=== PATIENT | female | born 1995 ===

== ENCOUNTER 2017-10-19 19:56 | Emergency (ER) | payer SELFPAY ==
[2017-10-19 20:20] VITALS: BP 115/71
[2017-10-19 20:36] LABS: Basophils % (Auto) 0.4 % (0.0-1.8); Eosinophils # (Auto) 0.1 K/mm3 (0.0-0.4); Eosinophils % (Auto) 0.6 % (0.0-4.3); Hematocrit 37.2 % (30.3-42.9); Hemoglobin 11.9 gm/dl (10.1-14.3); Lymphocytes # (Auto) 3.1 K/mm3 (1.2-5.4); Lymphocytes % (Auto) 25.7 % (13.4-35.0); Mean Corpuscular HGB Conc 32 % (30-34); Mean Corpuscular Volume 81 fl (79-97); Platelet Count 285 K/mm3 (140-440); Red Blood Count 4.63 M/mm3 (3.65-5.03); Red Cell Distribution Width 14.1 % (13.2-15.2)
[2017-10-19 20:49] LABS: Mean Corpuscular Hemoglobin 26 pg (28-32)
--- NOTE | 2017-10-20 00:33 | Ultrasound Report ---
FINAL REPORT EXAM: US OB TRANSVAGINAL HISTORY: vaginal bleeding TECHNIQUE: Transvaginal imaging was obtained of the pelvis including Doppler interrogation of the uterus and adnexa. FINDINGS: The uterus is anteverted measuring 9.9 cm x 6 cm x 6 cm. Within the uterus is a well-formed gestational sac which contains an embryo and yolk sac. The crown-rump length is 8 millimeters. This corresponds to a 6 week 6 day IUP. The heart rate is 110 BPM. Adjacent to the gestational sac is a hypoechoic structure measuring 3.5 cm x 1.6 cm x 1.3 cm. Whether this represents a subchorionic bleed versus 2nd gestational sac is uncertain. Free fluid is not seen. The right ovary is normal size contour blood flow and echotexture measuring 2.9 cm x 1.8 cm x 1.9 cm. The left ovary measures 3.5 cm x 1.8 cm x 2.5 cm. Within the left ovary is a functional cyst measuring 1.9 cm in diameter. The blood flow is normal. IMPRESSION: Single viable IUP, 6 weeks 6 days. The heart rate is at the lower range of normal at 110 BPM. Large subchorionic hemorrhage versus 2nd gestational sac as described. Follow-up study recommended. No evidence of free fluid. 1.9 cm functional cyst left ovary most likely representing corpus luteum cyst.
--- NOTE | 2017-10-20 00:45 | Ultrasound Report ---
FINAL REPORT EXAM: US OB < = 14 WEEKS FETUS HISTORY: vaginal bleeding TECHNIQUE: Transabdominal imaging was obtained of the pelvis. Doppler interrogation of the uterus was obtained. FINDINGS: The uterus is anteverted measuring 9.9 cm x 6 cm x 6 cm. Within the uterus is a gestational sac which contains a yolk sac and pole. The crown-rump length is 8 millimeters corresponding to a 6 week 6 day IUP. The heart rate is 110 BPM. Adjacent to the gestational sac is a hypoechoic area measuring 3.5 cm x 1.6 cm x 1.3 cm. As to whether this represents a large subchronic hemorrhage versus 2nd gestational sac is uncertain. Free fluid is not seen. The right ovary is normal size contour and echotexture measuring 2.9 cm x 1.8 cm x 1.9 cm. The left ovary measures 3.5 cm x 1.8 cm x 2.5 cm. Within the left ovary is a functional cyst measuring 1.9 cm in diameter. IMPRESSION: Single viable IUP, 6 weeks 6 days. The heart rate is at the lower range of normal at 110 BPM. Largest subchronic hemorrhage versus 2nd adjacent gestational sac. Follow-up study recommended.
== END 2017-10-20 01:15 | disposition left against medical advice (07) ==
LOC: ED 19:56
DX: R10.9 Unspecified abdominal pain (principal); Z53.21 Procedure and treatment not carried out due to patient leaving prior to being seen by health care provider
CPT/HCPCS: 36415; 76801; 76817; 84702; 85025